=== PATIENT | male | born 1960 | race Caucasian/White ===

== ENCOUNTER → 2017-09-23 | Outpatient (CLI) | payer BC ==
--- NOTE | 2017-09-23 14:02 | EST ---
EXERCISE STRESS DATE OF SERVICE: 09/23/2017 AGE: 57 SEX: M HT: 5'11" WT: 182 PROTOCOL: Laron Stress Test STAGE: III DURATION OF EXERCISE: 10:31 HEART RATE REST: 84 BLOOD PRESSURE REST: 137/41 MAXIMUM HEART RATE ACHIEVED: 152 MAXIMUM BLOOD PRESSURE: 205/89 85% MPHR: 138. 100% MPHR: 162 METS: 12.1 INDICATIONS: Chest pain. CLINICAL INFORMATION: Baseline rhythm is sinus mechanism, rate of 84, normal axis and intervals. Normal echocardiogram. Baseline blood pressure 137/41 mmHg. Patient exercised on Laron protocol for 10 minute 31 seconds reaching peak rate of 152 beats per minute, which is equal to 93% of maximum predicted heart rate. Blood pressure 205/89 mmHg, test was terminated due to fatigue. There was no chest pain. Electrocardiograph monitoring revealed no evidence of diagnostic ischemic ST deviation. CONCLUSION: 1. Good exercise tolerance with no symptoms of chest pain. 2. Normal electrocardiograph response to exercise with no evidence of exercise induced ischemia. MMODL / IJN: [id number] /
== END | disposition home or self-care (01) ==
LOC: RADNMMAIN 11:02
PROVIDERS: ATTEND Family Medicine
DX: R07.89 Other chest pain (principal); R03.0 Elevated blood-pressure reading, without diagnosis of hypertension; R06.09 Other forms of dyspnea; Z82.49 Family history of ischemic heart disease and other diseases of the circulatory system; Z87.891 Personal history of nicotine dependence
CPT/HCPCS: 93017